=== PATIENT | female | born 1995 | race Two or more races ===

== ENCOUNTER 2021-10-02 07:40 | Emergency (ER) | payer OTHER ==
[~2021-10-02] VITALS: Ht 147.3 cm; Wt 49.9 kg
== END 2021-10-02 09:24 | disposition home or self-care (01) ==
LOC: ER 07:40
DX: S83.92XA Sprain of unspecified site of left knee, initial encounter (principal); W17.89XA Other fall from one level to another, initial encounter; Y93.9 Activity, unspecified; Y92.9 Unspecified place or not applicable; Y99.9 Unspecified external cause status